=== PATIENT | female | born 1980 | race Caucasian/White ===

== ENCOUNTER 2016-09-23 19:33 | Emergency (ER) | payer OTHER ==
[2016-09-23] MEDS ORDERED: ONDANSETRON DISINTEGRATING 4 MG TAB PO ONE (20:11)
[2016-09-23] MEDS ORDERED: NS 1,000 ML IV ONE ×2 (21:43→21:46)
[2016-09-23] MEDS ORDERED: METOCLOPRAMIDE 10 MG/2 ML VIAL IVP ONE (21:46)
[2016-09-23] MEDS ORDERED: KETOROLAC 30 MG/1 ML SDV IVP ONE (21:46)
[2016-09-23] MEDS ORDERED: LORazepam 2 MG/ML INJ IVP ONE (21:46)
[2016-09-23] MEDS ORDERED: LORazepam 1 MG TAB PO ONE (22:36)
[2016-09-23] MEDS ORDERED: LORAZEPAM 1 MG PREPACK#4 BTL TAKEHOME ONE (22:38)
--- NOTE | 2016-09-23 22:38 | EDPHY ---
H & P Stated Complaint: migraine for 2 days upper abd burning HPI/ROS: Chief complaint: Migraine headache History of present illness: This is a 36-year-old female who presents to the emergency department for a migraine headache. Patient reports the onset of symptoms over the last 1-2 days. She describes severe global pain. She has had associated photophobia as well as nausea and vomiting. She has mild epigastric pain she believes is from the persistent vomiting. She states symptoms have been persistent. She denies precipitating factors. She denies alleviating factors. She denies other associated signs or symptoms including no recent trauma, no fevers or cold symptoms, no paresthesias, weakness or paralysis or bowel or bladder dysfunction. Patient has a history of migraine headaches, this is typical in nature. There is nothing new or different today is compared to previous episodes. She has treated migraine headaches with Zomig in the past but is currently out. Patient also has a history of cluster headaches although this does not feel similar feels more like a migraine headache. 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 Review of systems: A 10 point review of systems was obtained and other than described above was negative - Personal History LMP (Females 10-55): 8-14 Days Ago Current Tetanus/Diphtheria Vaccine: Yes Current Tetanus Diphtheria and Acellular Pertussis (TDAP): Yes - Medical/Surgical History Hx Asthma: Yes Hx Chronic Respiratory Disease: No Hx Diabetes: No Hx Cardiac Disease: No Hx Renal Disease: No Hx Cirrhosis: No Hx Alcoholism: No Hx HIV/AIDS: No Hx Splenectomy or Spleen Trauma: No Other PMH: sinus surgery. gallbladder - Social History Smoking Status: Current some day smoker - Physical Exam Exam: General Appearance: Alert, nontoxic. Eyes: Pupils equal and round no pallor or injection. ENT, Mouth: Mucous membranes moist. Respiratory: There are no retractions, lungs are clear to auscultation. Cardiovascular: Regular rate and rhythm. Gastrointestinal: Abdomen is soft and nontender, no masses, bowel sounds normal. Neurological: Alert and oriented x4. Cranial nerves 2-12 grossly intact. Strength and sensation intact and symmetrical. No pronator drift. No meningismus. Ambulating well. Skin: Warm and dry, no rashes. Musculoskeletal: Neck is supple nontender. Extremities are symmetrical, full range of motion. Psychiatric: Patient is oriented X 3, there is no agitation. Constitutional: Initial Vital Signs Temperature (C) 36.7 C 09/23/16 19:59 Heart Rate 75 09/23/16 19:59 Respiratory Rate 18 09/23/16 19:59 Blood Pressure 102/67 09/23/16 19:59 O2 Sat (%) 96 09/23/16 19:59 O2 Delivery Mode Room Air O2 (L/minute) 2 Allergies/Adverse Reactions: gluten Allergy (Verified 09/23/16 19:58) sulfamethoxazole [From Bactrim] Allergy (Verified 09/23/16 19:58) trimethoprim [From Bactrim] Allergy (Verified 09/23/16 19:58) Home Medications: Medication Instructions Recorded ARMOUR THYROID 09/23/16 Effexor 09/23/16 Hydrocortisone 09/23/16 KLONOPIN 09/23/16 Zyrtec-D Tablet 09/23/16 traZODONE 100MG (*) 09/23/16 Medical Decision Making ED Course/Re-evaluation: Patient is seen under the supervision of my secondary supervising physician Dr. Fahad Crenshaw. Patient presents to the emergency department for evaluation and treatment of a migraine headache. On presentation patient is nontoxic. She is afebrile and vital signs are stable. Physical exam is benign including a nonfocal neurologic exam. My suspicion for serious causes of headaches is low. This was not thunderclap in nature. It is not the worst headache of her life. She has a nonfocal neurologic exam. She has had similar headaches in the past. I do not believe imaging studies or laboratory studies including lumbar puncture are warranted. Patient is symptomatically treated as listed with resolution of symptoms. Patient is comfortable being discharged home. Home care is discussed. She is asked to follow up with a primary care doctor or Neurology for recheck and refill of appropriate migraine medications. Strict return precautions are given. Patient voiced understanding and agreement with plan. Differential Diagnosis: Included but not limited to migraine headache, tension headache, cluster headache, chronic daily headache, unlikely intracranial lesion, meningitis or CVA - Data Points Medications Given: Discontinued Medications Diphenhydramine HCl (Benadryl Injection) 25 mg IVP EDNOW ONE Stop: 09/23/16 21:47 Last Admin: 09/23/16 22:19 Dose: 25 mg Diphenhydramine HCl (Benadryl Injection) 25 mg IVP EDNOW ONE Stop: 09/23/16 22:36 Last Admin: 09/23/16 22:36 Dose: 25 mg Sodium Chloride (Ns) 1,000 mls @ 0 mls/hr IV ONCE ONE PRN Reason: Wide Open Stop: 09/23/16 21:44 Last Admin: 09/23/16 21:25 Dose: 1,000 mls Sodium Chloride (Ns) 1,000 mls @ 0 mls/hr IV ONCE ONE PRN Reason: Wide Open Stop: 09/23/16 21:47 Last Admin: 09/23/16 22:20 Dose: 1,000 mls Ketorolac Tromethamine (Toradol) 30 mg IVP EDNOW ONE Stop: 09/23/16 21:47 Last Admin: 09/23/16 22:19 Dose: 30 mg Lorazepam (Ativan Injection) 1 mg IVP EDNOW ONE Stop: 09/23/16 21:47 Last Admin: 09/23/16 22:20 Dose: 1 mg Lorazepam (Ativan 1 Mg Prepack#4) 1 btl TAKEHOME EDNOW ONE Stop: 09/23/16 22:39 Last Admin: 09/23/16 22:52 Dose: 1 btl Metoclopramide HCl (Reglan Injection) 10 mg IVP EDNOW ONE Stop: 09/23/16 21:47 Last Admin: 09/23/16 22:20 Dose: 10 mg Ondansetron HCl (Zofran Odt) 4 mg PO EDNOW ONE Stop: 09/23/16 20:12 Last Admin: 09/23/16 20:26 Dose: 4 mg Departure - Departure Disposition: Home, Routine, Self-Care Clinical Impression: Headache Qualifiers: Headache type: unspecified Headache chronicity pattern: acute headache Intractability: not intractable Qualified Code(s): R51 - Headache Condition: Good Instructions: Lorazepam (By mouth), Acute Headache (ED) Additional Instructions: Follow-up with your primary care doctor for recheck If symptoms worsen or new symptoms develop return to the emergency room for recheck Referrals: NONE *PRIMARY CARE P,. [Primary Care Provider] - As per Instructions Fahad Falcon MD [Medical Doctor] - As per Instructions Ty Laws MD [Medical Doctor] - As per Instructions
[2016-09-23 22:54] VITALS: BP 119/76; PULSE 66; RESP 16; TEMP 97.9; O2SAT 99
== END 2016-09-23 22:53 | disposition home or self-care (01) ==
DX: R51 Headache (principal); J45.909 Unspecified asthma, uncomplicated; F17.200 Nicotine dependence, unspecified, uncomplicated
CPT/HCPCS: 96374; J1200; J1885; J2060; J2765

== ENCOUNTER 2016-11-12 08:26 | Emergency (ER) | payer OTHER ==
[2016-11-12 08:30] VITALS: RESP 16
[2016-11-12] MEDS ORDERED: NS 1,000 ML IV ONE (08:57)
[2016-11-12] MEDS ORDERED: LORazepam 2 MG/ML INJ IVP ONE (08:58)
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
[2016-11-12 12:57] VITALS: BP 104/65; PULSE 95; TEMP 98.6; O2SAT 97
== END 2016-11-12 13:17 | disposition home or self-care (01) ==
DX: F41.9 Anxiety disorder, unspecified (principal); E86.9 Volume depletion, unspecified; J45.909 Unspecified asthma, uncomplicated; Z87.891 Personal history of nicotine dependence
CPT/HCPCS: 96374; J2060